=== PATIENT | female | born 1995 | race Caucasian/White ===

== ENCOUNTER 2018-08-02 14:36 | Emergency (ER) | payer SELFPAY ==
[~2018-08-02] VITALS: Ht 165.1 cm; Wt 54.4 kg
[~2018-08-02 14:36] MED LIST: AMOX875T PO; HYDR-971 PO; HYDR15SO4 PO
[2018-08-02 14:45] VITALS: BP 114/76
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
== END 2018-08-02 16:00 | disposition home or self-care (01) ==
LOC: ER 14:36
DX: R20.2 Paresthesia of skin (principal); M06.9 Rheumatoid arthritis, unspecified
CPT/HCPCS: 99281

== ENCOUNTER 2019-10-22 14:43 | Emergency (ER) | payer SELFPAY ==
[~2019-10-22] VITALS: Ht 165.1 cm; Wt 61.2 kg
[~2019-10-22 14:43] MED LIST changes: +CEPH-264 PO; +HYDR-3164 PO; -HYDR-971 PO; -HYDR15SO4 PO; +HYDR15SO6 PO; +NAPR500T8 PO; +ONDA4TAB12 PO
[2019-10-22 15:06] VITALS: BP 103/69
[2019-10-22] MEDS ORDERED: ONDA4TAB12 PO (15:35)
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
== END 2019-10-22 15:48 | disposition home or self-care (01) ==
LOC: ER 14:43
DX: O98.511 Other viral diseases complicating pregnancy, first trimester (principal); R09.89 Other specified symptoms and signs involving the circulatory and respiratory systems; R09.81 Nasal congestion; Z3A.01 Less than 8 weeks gestation of pregnancy; Z98.890 Other specified postprocedural states
CPT/HCPCS: 99283; 99285